=== PATIENT | female | born 1955 | race Caucasian/White ===

== ENCOUNTER 2018-06-09 19:56 | Emergency (ER) | payer BC, OTHER ==
[~2018-06-09] VITALS: Ht 152.4 cm; Wt 62.6 kg
[~2018-06-09 19:56] MED LIST: ASPIR 8181 MG PO; LIPITOR20 MG PO; TOPROL XL50 MG PO
[2018-06-09] MEDS ORDERED: PEPCID20 MG PO (20:28)
[2018-06-09] MEDS ORDERED: PREDNISONE20 MG PO (20:28)
[2018-06-09] MEDS ORDERED: BENADRYL25 M1 PO (20:28)
== END 2018-06-09 20:42 | disposition home or self-care (01) ==
LOC: FSED 19:56
DX: L23.2 Allergic contact dermatitis due to cosmetics (principal); E78.5 Hyperlipidemia, unspecified
CPT/HCPCS: 99283